=== PATIENT | female | born 1960 | race African-American/Black ===

== ENCOUNTER 2025-01-01 09:33 | Outpatient (RCR) | payer MEDICAID, SELFPAY ==
--- NOTE | 2025-01-01 10:00 | XR_ITS ---
Examination: SRINI, hepatobiliary radioisotope scan Gallbladder ejection fraction study. Date and time of exam: January 01, 2025 0950 hours INDICATIONS: Vomiting with eating food 15 years, heartburn Technique: 6 mCi of 99M Hepatolite administered. Serial imaging then obtained from immediate through 60 minutes. 2.0 mcg selective catheter Kinevac administered for gallbladder ejection fraction study. Findings: Radioisotope activity within the liver is reasonably homogenous. Gallbladder, common bile duct small bowel activity noted Impression: Gallbladder activity Abnormal gallbladder ejection fraction, 5%, normal greater than 35%
== END 2025-01-06 23:59 | disposition home or self-care (01) ==
LOC: SNUC 09:33
PROVIDERS: PCP Internal Medicine Gastroenterology; Referring Provider Internal Medicine Gastroenterology; Visit Provider Internal Medicine Gastroenterology
DX: R93.2 Abnormal findings on diagnostic imaging of liver and biliary tract (principal)
CPT/HCPCS: 78227; A9537; J2805